=== PATIENT | male | born 1965 | race Caucasian/White ===

== ENCOUNTER 2020-06-23 18:57 | Emergency (ER) | payer OTHER, SELFPAY ==
--- NOTE | ~2020-06-23 | CT_ITS ---
EXAMINATION: CT cervical spine wo con DATE: 06/23/2020 19:33 INDICATION: Head injury TECHNIQUE: Computed tomography (CT) of the cervical spine was performed without intravenous contrast. The dose-length product (DLP) was 563.69 mGy-cm. Automated exposure control and iterative reconstruc tion technique were employed. COMPARISON: 10/08/2016 FINDINGS: There is no fracture, dislocation, or subluxation. The vertebral body heights, alignment, a nd intervertebral disc spaces are normal. The paravertebral soft tissues are unremarkable. The odonto id is intact. IMPRESSION: 1. No acute osseous abnormality. Reviewed, dictated and finalized at location A.
--- NOTE | ~2020-06-23 | CT_ITS ---
EXAMINATION: CT brain wo con INDICATION: Head injury COMPARISON: 10/08/2016 TECHNIQUE: Standard unenhanced head CT. The dose-length product (DLP) was 681.00 mGy-cm. The mA was a djusted according to patient size. Iterative reconstruction technique was employed. FINDINGS: There is a left parietal scalp hematoma. There is no intracranial hemorrhage, acute infarct ion, or abnormal mass lesion. The ventricles are normal. There is no abnormal mass effect or midline shift. The alcocer-white matter differentiation is normal. The basal cisterns are patent. The orbits are normal. The paranasal sinuses, mastoids and calvarium are normal. IMPRESSION: 1. Left parietal scalp hematoma without acute intracranial abnormality. Reviewed, dictated and finalized at location A.
[2020-06-23 18:56] VITALS: BP 153/89; PULSE 90; RESP 18; TEMP 37; O2SAT 96
[2020-06-23] MEDS: FAMOTIDINE 20 MG/2 ML VIAL IV PUSH (19:33)
[2020-06-23] MEDS: LIDOCAINE, EPINEPHRINE, TETRACAINE VISCOUS SOLN 3 ML TOPICAL (19:33)
[2020-06-23] MEDS: PROCHLORPERAZINE EDISYLATE 10 MG/2 ML VIAL IV PUSH (19:33)
--- NOTE | 2020-06-23 19:41 | ED.FALL ---
HPI - Fall General Chief Complaint: Fall Stated Complaint: fall off ladder/approx 6 ft Time Seen by Provider: 06/23/20 19:04 Source: patient Mode of arrival: EMS Limitations: no limitations History of Present Illness HPI Narrative: Patient is a 54-year-old male who presents for EMS status post fall from 6 feet was on a ladder changing a light when he lost his balance fell backwards striking the head denies loss of consciousness presents with laceration to the posterior scalp does have dizziness and nausea with sitting up also complains of neck pain patient denies anticoagulant use and on arrival continues to have slight nausea was given Zofran with improvement patient denies any other skeletal or extremity injury or recent illness or other complaints patient does not appear distressed or uncomfortable upon arrival Related Data Home Medications Medication Instructions Recorded Confirmed lisinopril 06/23/20 Allergies Allergy/AdvReac Type Severity Reaction Status Date / Time No Known Allergies Allergy Unverified 06/23/20 19:01 Review of Systems Review of Systems: All systems reviewed & are unremarkable except as noted in HPI and below PMFSH Past Medical History Medical History (Updated 06/23/20 @ 20:43 by Almas Monroe PA-C) Obesity Surgical History Surgical History (Updated 06/23/20 @ 19:43 by Almas Monroe PA-C) History of orthopedic surgery Social History Social History (Updated 06/23/20 @ 19:43 by Almas Monroe PA-C) Smoking status: Never smoker Exam Narrative: Exam Narrative: GENERAL: Well-appearing, obese, and in no acute distress. HEAD: Normocephalic, contusion hematoma and laceration posterior scalp EYES: PERRLA and EOMI. ENT: Nares clear, no rhinorrhea or epistaxis. Mucous membranes moist. NECK: Supple. No adenopathy or masses. CHEST: Clear to auscultation. No respiratory distress. No wheezes rales or rhonchi HEART: Regular rate and rhythm. No murmur heard. Normal peripheral pulses. ABDOMEN: Soft, nontender, nondistended EXTREMITIES: Normal range of motion. No edema. Patient moves extremities freely and without difficulty SKIN: Warm, dry, no rash. NEURO: No focal deficits. Alert and oriented x3. Cranial nerves II through XII grossly intact. Normal speech PSYCH: Normal mood and affect. Course Course Emergency Course: Patient with head injury no high risk changes in the scans of the head and neck c-collar was cleared wound was closed patient will be discharged home with follow-up with primary care given reasons to return ABCs and vital signs intact and stable patient is felt appropriate for outpatient reevaluation Vital Signs Vital signs: Vital Signs Temperature 98.6 F 06/23/20 18:56 Pulse Rate 90 06/23/20 18:56 Respiratory Rate 18 06/23/20 18:56 Blood Pressure 153/89 H 06/23/20 18:56 Pulse Oximetry 96 06/23/20 18:56 Temperature 98.6 F 06/23/20 18:56 Pulse Rate 90 06/23/20 18:56 Respiratory Rate 18 06/23/20 18:56 Blood Pressure 153/89 H 06/23/20 18:56 Pulse Oximetry 96 06/23/20 18:56 Procedures Laceration Laceration 1: Date: 06/23/20 Time: 21:03 Site: scalp Size (cm): 5 Description: stellate Depth: simple, single layer Local Anesthetic: other anesthetic Pre-repair: wound explored, irrigated and irrigated extensively ====== Skin Level ====== Skin layer closed with: carla Number of sutures: 9 ====== Subcutaneous Layer ====== ====== Muscle Layer ====== ====== Tendon Layer ====== Dressing: Patient with contused area to the posterior scalp with overlying stellate laceration which was closed with carla MDM - Fall MDM Narrative Medical decision making narrative: Patient presented with head injury and laceration had evaluation with scan of the brain and neck which were negative for any intracranial or cervical fracture patient franchesca
[2020-06-23 20:25] VITALS: BP 150/80; PULSE 82; RESP 16; O2SAT 99
[2020-06-23 21:19] VITALS: BP 151/78; PULSE 80; RESP 16; O2SAT 98
== END 2020-06-23 21:12 | disposition home or self-care (01) ==
PROVIDERS: Emergency Provider Emergency Medicine; PCP Internal Medicine
DX: S01.01XA Laceration without foreign body of scalp, initial encounter (principal); S16.1XXA Strain of muscle, fascia and tendon at neck level, initial encounter; E66.9 Obesity, unspecified; Z68.35 Body mass index [BMI] 35.0-35.9, adult; W11.XXXA Fall on and from ladder, initial encounter
CPT/HCPCS: 12002; 70450; 72125; 96365; 96375; 99284; J0131; J0780

== ENCOUNTER 2021-10-15 13:31 | Outpatient (CLI) | payer OTHER, SELFPAY ==
--- NOTE | 2021-10-16 15:01 | WPDPFTINT ---
PFT Procedure Performed PFT Procedure Performed Plethysmography (Lung Vol) Diffusing Cap (DLCO) Flow Vol Loop Spirometry w/o Bronchodil PFT Interpretation This is a pulmonary function test with spirometry, plethysmography and diffusing capacity. The test was performed and results interpreted in accordance with the 2019 and 2005 ATS/ERS Task Force guidelines respectively using the Global Lung Function Initiative-2012 reference equations. Patient demonstrated good effort and cooperation. Reproducibility criteria were met. The quality of the spirometry maneuver was Grade A. Findings: Spirometry: The contour the inspiratory and expiratory flow tracing are normal. The FVC is 4.21 L, 86% predicted. The FEV1 is 3.44 L, 90% predicted. The FEV1: FVC ratio was 82%. Plethysmography: The total lung capacity is 5.35 L, 77% predicted. Functional residual capacity is 1.36 L, 38% predicted. The residual volume is 1.04 L, 49% predicted. Diffusing capacity: The diffusing capacity unadjusted for hemoglobin and carboxyhemoglobin is 26.3, 88% predicted. The diffusing capacity adjusted for alveolar volume is 5.04, 114% predicted. Impression: There is a mild restrictive ventilatory abnormality with a normal FEV1. The spirometry is normal without evidence of an obstructive abnormality. The diffusing capacity is normal. There are no prior studies for comparison
== END 2021-10-15 13:32 | disposition home or self-care (01) ==
PROVIDERS: PCP Internal Medicine; Visit Provider Internal Medicine
DX: R06.09 Other forms of dyspnea (principal); R94.2 Abnormal results of pulmonary function studies
CPT/HCPCS: 94375; 94726; 94729